=== PATIENT | male | born 1955 | race Caucasian/White ===

== ENCOUNTER 2022-08-14 09:22 | Emergency (ER) | payer OTHER, BC ==
[2022-08-14 09:33] VITALS: PULSE 75; RESP 18; BMI 25.7
[2022-08-14] MEDS ORDERED: KETOROLAC TROMETHAMINE 30 MG/1 ML VIAL IM ONE (10:01)
[2022-08-14] MEDS ORDERED: KETOROLAC TROMETHAMINE 30 MG/1 ML VIAL ONE (10:09)
[2022-08-14 13:15] LABS: BASO % 0.8 % (0-2.0); EOS % 2.1 % (0-4.5); HEMATOCRIT 42.2 % (35.4-49); HEMOGLOBIN 14.4 GM/dL (11.7-16.9); LYMPH % 17.5 % (8-40); MCH 31.6 pg (25.7-33.7); MCHC 34.2 g/dl (32.0-35.9); MEAN CELL VOLUME 92.4 fl (80-96); MEAN PLT VOLUME 7.2 fl (7.5-11.1); MONO % 7.9 % (3.8-10.2); NEUT % 71.7 % (42.8-82.8); PLATELET COUNT 251 10^3/uL (134-434); RBC 4.57 M/mm3 (4.00-5.60); RDW 13.9 % (11.9-15.9); WHITE BLOOD COUNT 8.9 K/mm3 (4.0-10.0)
[2022-08-14 13:46] LABS: POTASSIUM 4.6 mmol/L (3.5-5.1)
[2022-08-14 13:48] LABS: ALBUMIN 3.9 g/dl (3.4-5.0); BLOOD UREA NITROGEN 8.4 mg/dL (7-18); CALCIUM 9.6 mg/dL (8.5-10.1)
[2022-08-14 13:50] LABS: CREATININE 0.6 mg/dL (0.55-1.3)
[2022-08-14 13:52] LABS: BILIRUBIN,TOTAL 0.8 mg/dL (0.2-1); TOT PROT 7.5 g/dl (6.4-8.2)
[2022-08-14 14:06] VITALS: BP 150/65; TEMP 98.2
== END 2022-08-14 14:07 | disposition home or self-care (01) ==
LOC: JER 09:22
PROC: 3E0233Z Introduction of Anti-inflammatory into Muscle, Percutaneous Approach (ICD-10-PCS; principal; 2022-08-14)
DX: M25.552 Pain in left hip (principal)
CPT/HCPCS: 36415; 72192-TC; 73502-TC-LT-FY; 73562-TC-LT-FY; 80053; 85025; 99285-25

== ENCOUNTER 2022-10-08 09:16 | Inpatient (IN) | payer OTHER, BC ==
[2022-10-08 09:22] VITALS: BMI 24.7
[2022-10-08] MEDS ORDERED: ACETAMINOPHEN 1000 MG/100 ML BAG IVPB ONE (12:42)
[2022-10-08] MEDS ORDERED: MAGNESIUM CITRATE 300 ML BOTTLE PO ONE (12:43)
[2022-10-08] MEDS ORDERED: SODIUM PHOSPHATE/NA BIPHOS 133 ML ENEMA PR ONE (12:43)
[2022-10-08] MEDS ORDERED: ACETAMINOPHEN INJECTION 100 ML IVPB ONE (13:32)
[2022-10-08 14:40] LABS: HEMATOCRIT 34.1 % (35.4-49); HEMOGLOBIN 11.3 GM/dL (11.7-16.9); MCH 30.1 pg (25.7-33.7); MCHC 33.1 g/dl (32.0-35.9); MEAN PLT VOLUME 8.4 fl (7.5-11.1); PLATELET COUNT 368 10^3/uL (134-434); RBC 3.75 M/mm3 (4.00-5.60); RDW 13.8 % (11.9-15.9); WHITE BLOOD COUNT 8.9 K/mm3 (4.0-10.0)
[2022-10-08 15:01] LABS: POTASSIUM 5.4 mmol/L (3.5-5.1)
[2022-10-08 15:03] LABS: CALCIUM 9.3 mg/dL (8.5-10.1)
[2022-10-08 15:04] LABS: ALBUMIN 3.2 g/dl (3.4-5.0); BLOOD UREA NITROGEN 16.1 mg/dL (7-18); MAGNESIUM 2.2 mg/dL (1.8-2.4)
[2022-10-08 15:07] LABS: CREATININE 0.9 mg/dL (0.55-1.3)
[2022-10-08 15:08] LABS: LACTIC ACID 2.5 mmol/L (0.4-2.0); TOT PROT 7.6 g/dl (6.4-8.2)
[2022-10-08] MEDS ORDERED: SODIUM CHLORIDE 0.9% 500 ML INFUS.BAG IV ONE (16:09)
[2022-10-08] MEDS ORDERED: KETOROLAC TROMETHAMINE 15 MG/ML VIAL IVPUSH ONE (16:47)
[2022-10-08] MEDS ORDERED: KETOROLAC TROMETHAMINE 15 MG/ML VIAL ONE (16:54)
[2022-10-08] MEDS ORDERED: METOPROLOL TARTRATE 5 MG/5 ML VIAL IVPUSH PRN (18:02)
[2022-10-08] MEDS: SODIUM CHLORIDE 1,000 ML IV SCH (20:09)
[2022-10-09] MEDS: SODIUM CHLORIDE 1,000 ML IV SCH (06:30)
[2022-10-09] MEDS ORDERED: MAGNESIUM HYDROX 2400MG/30ML ORAL SUSPENSION 30 ML CUP PO PRN (09:28)
[2022-10-09 10:45] LABS: BASO % 0.6 % (0-2.0); EOS % 1.9 % (0-4.5); HEMATOCRIT 32.8 % (35.4-49); HEMOGLOBIN 10.8 GM/dL (11.7-16.9); MCH 29.9 pg (25.7-33.7); MCHC 32.9 g/dl (32.0-35.9); MEAN CELL VOLUME 90.7 fl (80-96); MEAN PLT VOLUME 8.1 fl (7.5-11.1); NEUT % 75.5 % (42.8-82.8); PLATELET COUNT 331 10^3/uL (134-434); RBC 3.62 M/mm3 (4.00-5.60); RDW 13.9 % (11.9-15.9); WHITE BLOOD COUNT 7.5 K/mm3 (4.0-10.0)
[2022-10-09 11:05] LABS: POTASSIUM 4.2 mmol/L (3.5-5.1)
[2022-10-09 11:33] LABS: BILIRUBIN,TOTAL 0.9 mg/dL (0.2-1)
[2022-10-09 11:35] LABS: TOT PROT 6.8 g/dl (6.4-8.2)
[2022-10-09 11:37] LABS: CALCIUM 8.5 mg/dL (8.5-10.1)
[2022-10-09 11:38] LABS: CREATININE 0.7 mg/dL (0.55-1.3); MAGNESIUM 2.6 mg/dL (1.8-2.4)
[2022-10-09 11:39] LABS: BLOOD UREA NITROGEN 13.2 mg/dL (7-18)
[2022-10-09 16:05] LABS: RETICULOCYTES 1.06 % (0.5-1.5)
[2022-10-09] MEDS ORDERED: KETOROLAC TROMETHAMINE 30 MG/1 ML VIAL IVPUSH ONE (16:12)
[2022-10-09] MEDS: ACETAMINOPHEN 1000 MG/100 ML BAG IVPB PRN (16:40)
[2022-10-09] MEDS: MONTELUKAST NA 10 MG TABLET PO SCH (21:11)
[2022-10-09] MEDS ORDERED: ATORVASTATIN CA 20 MG TABLET (FP) PO SCH (22:00)
[2022-10-09] MEDS ORDERED: APIXABAN 2.5 MG TABLET PO SCH (22:00)
[2022-10-10] MEDS: ACETAMINOPHEN 1000 MG/100 ML BAG IVPB PRN (03:37)
[2022-10-10] MEDS: TAMSULOSIN HCL 0.4 MG CAP PO SCH (09:08)
[2022-10-10] MEDS: CYCLOBENZAPRINE HCL 10 MG TABLET (FP) PO SCH (09:08)
[2022-10-10] MEDS: amLODIPine BESYLATE 2.5 MG TABLET (FP) PO SCH (09:08)
[2022-10-10] MEDS: ENOXAPARIN NA (PORCINE) 40 MG/0.4 ML DISP.SYRIN SQ SCH (09:09)
[2022-10-10] MEDS: PANTOPRAZOLE 20 MG TABLET PO SCH (09:09)
[2022-10-10] MEDS: SODIUM CHLORIDE 1,000 ML IV SCH (09:10)
[2022-10-10 10:10] LABS: BASO % 0.7 % (0-2.0); EOS % 2.7 % (0-4.5); HEMATOCRIT 32.3 % (35.4-49); HEMOGLOBIN 10.5 GM/dL (11.7-16.9); LYMPH % 13.4 % (8-40); MCH 29.1 pg (25.7-33.7); MCHC 32.5 g/dl (32.0-35.9); MEAN CELL VOLUME 89.6 fl (80-96); MEAN PLT VOLUME 8.1 fl (7.5-11.1); MONO % 7.8 % (3.8-10.2); NEUT % 75.4 % (42.8-82.8); PLATELET COUNT 334 10^3/uL (134-434); RBC 3.61 M/mm3 (4.00-5.60); RDW 13.6 % (11.9-15.9); WHITE BLOOD COUNT 7.9 K/mm3 (4.0-10.0)
[2022-10-10 10:34] LABS: POTASSIUM 4.7 mmol/L (3.5-5.1)
[2022-10-10 10:42] LABS: ALBUMIN 2.8 g/dl (3.4-5.0); CALCIUM 8.8 mg/dL (8.5-10.1); MAGNESIUM 2.1 mg/dL (1.8-2.4)
[2022-10-10 10:43] LABS: BLOOD UREA NITROGEN 8.9 mg/dL (7-18)
[2022-10-10 10:45] LABS: CREATININE 0.6 mg/dL (0.55-1.3)
[2022-10-10 10:47] LABS: TOT PROT 6.8 g/dl (6.4-8.2)
[2022-10-10] MEDS ORDERED: ACETAMINOPHEN 1000 MG/100 ML BAG IVPB ONE (14:07)
[2022-10-10] MEDS: traMADol HCL 50 MG TABLET PO SCH ×2 (14:16→21:43)
[2022-10-10] MEDS: MONTELUKAST NA 10 MG TABLET PO SCH (21:44)
[2022-10-11] MEDS: traMADol HCL 50 MG TABLET PO SCH ×3 (06:06→21:41)
[2022-10-11] MEDS: TAMSULOSIN HCL 0.4 MG CAP PO SCH (09:50)
[2022-10-11] MEDS: amLODIPine BESYLATE 2.5 MG TABLET (FP) PO SCH (09:50)
[2022-10-11] MEDS: PANTOPRAZOLE 20 MG TABLET PO SCH (09:50)
[2022-10-11] MEDS: CYCLOBENZAPRINE HCL 10 MG TABLET (FP) PO SCH (09:50)
[2022-10-11] MEDS: ENOXAPARIN NA (PORCINE) 40 MG/0.4 ML DISP.SYRIN SQ SCH (09:51)
[2022-10-11 10:12] LABS: BASO % 0.8 % (0-2.0); EOS % 2.3 % (0-4.5); HEMATOCRIT 32.3 % (35.4-49); LYMPH % 15.7 % (8-40); MCH 29.8 pg (25.7-33.7); MCHC 34.1 g/dl (32.0-35.9); MEAN CELL VOLUME 87.1 fl (80-96); MEAN PLT VOLUME 7.6 fl (7.5-11.1); MONO % 8.6 % (3.8-10.2); NEUT % 72.6 % (42.8-82.8); PLATELET COUNT 317 10^3/uL (134-434); RBC 3.71 M/mm3 (4.00-5.60); RDW 13.8 % (11.9-15.9); WHITE BLOOD COUNT 7.6 K/mm3 (4.0-10.0)
[2022-10-11 10:36] LABS: POTASSIUM 4.5 mmol/L (3.5-5.1)
[2022-10-11 10:50] LABS: ALBUMIN 2.6 g/dl (3.4-5.0); BLOOD UREA NITROGEN 10.8 mg/dL (7-18); CALCIUM 9.1 mg/dL (8.5-10.1)
[2022-10-11 10:54] LABS: CREATININE 0.6 mg/dL (0.55-1.3); PHOSPHOROUS 4.3 mg/dL (2.5-4.9)
[2022-10-11 10:56] LABS: BILIRUBIN,TOTAL 0.8 mg/dL (0.2-1); TOT PROT 6.6 g/dl (6.4-8.2)
[2022-10-11] MEDS ORDERED: ACETAMINOPHEN 1000 MG/100 ML BAG IVPB ONE (18:02)
[2022-10-11] MEDS ORDERED: KETOROLAC TROMETHAMINE 15 MG/ML VIAL IVPUSH ONE (18:03)
[2022-10-11] MEDS ORDERED: ACETAMINOPHEN 500 MG TABLET (FP) PO SCH (18:30)
[2022-10-11] MEDS: LIDOCAINE 5% TOPICAL PATCH TP SCH (19:39)
[2022-10-11] MEDS: LIDOCAINE PATCH REMOVAL MC SCH (21:40)
[2022-10-11] MEDS: GABAPENTIN 300 MG CAPSULE PO SCH (21:42)
[2022-10-11] MEDS: ATORVASTATIN CA 20 MG TABLET (FP) PO SCH (21:42)
[2022-10-11] MEDS: MONTELUKAST NA 10 MG TABLET PO SCH (21:42)
[2022-10-12] MEDS: ACETAMINOPHEN 325 MG TABLET (FP) PO SCH ×4 (00:37→17:31)
[2022-10-12 05:22] VITALS: RESP 18
[2022-10-12] MEDS: traMADol HCL 50 MG TABLET PO SCH ×3 (06:03→21:04)
[2022-10-12] MEDS: GABAPENTIN 300 MG CAPSULE PO SCH ×3 (06:04→22:08)
[2022-10-12] MEDS: amLODIPine BESYLATE 2.5 MG TABLET (FP) PO SCH (09:25)
[2022-10-12] MEDS: PANTOPRAZOLE 20 MG TABLET PO SCH (09:25)
[2022-10-12] MEDS: CYCLOBENZAPRINE HCL 10 MG TABLET (FP) PO SCH (09:25)
[2022-10-12] MEDS: TAMSULOSIN HCL 0.4 MG CAP PO SCH (09:25)
[2022-10-12] MEDS: LIDOCAINE 5% TOPICAL PATCH TP SCH (09:26)
[2022-10-12] MEDS: ENOXAPARIN NA (PORCINE) 40 MG/0.4 ML DISP.SYRIN SQ SCH (09:27)
[2022-10-12 11:02] LABS: BASO % 0.8 % (0-2.0); EOS % 4.1 % (0-4.5); HEMATOCRIT 31.8 % (35.4-49); HEMOGLOBIN 10.6 GM/dL (11.7-16.9); LYMPH % 18.3 % (8-40); MCH 29.2 pg (25.7-33.7); MCHC 33.3 g/dl (32.0-35.9); MEAN CELL VOLUME 87.7 fl (80-96); MEAN PLT VOLUME 7.7 fl (7.5-11.1); MONO % 9.9 % (3.8-10.2); NEUT % 66.9 % (42.8-82.8); PLATELET COUNT 291 10^3/uL (134-434); RBC 3.63 M/mm3 (4.00-5.60)
[2022-10-12 11:09] LABS: POTASSIUM 4.1 mmol/L (3.5-5.1)
[2022-10-12 11:15] LABS: CALCIUM 8.9 mg/dL (8.5-10.1)
[2022-10-12 11:17] LABS: ALBUMIN 2.5 g/dl (3.4-5.0); BLOOD UREA NITROGEN 15.8 mg/dL (7-18); MAGNESIUM 2.1 mg/dL (1.8-2.4)
[2022-10-12 11:20] LABS: BILIRUBIN,TOTAL 0.6 mg/dL (0.2-1); CREATININE 0.7 mg/dL (0.55-1.3); PHOSPHOROUS 4.6 mg/dL (2.5-4.9); TOT PROT 6.3 g/dl (6.4-8.2)
[2022-10-12] MEDS ORDERED: BISACODYL 10 MG SUPP.RECT PR ONE (15:52)
[2022-10-12] MEDS: POLYETHYLENE GLYCOL (HEALTHYLAX) 3350 17 GM PACKET PO SCH (16:28)
[2022-10-12] MEDS: ATORVASTATIN CA 20 MG TABLET (FP) PO SCH (22:06)
[2022-10-12] MEDS: MONTELUKAST NA 10 MG TABLET PO SCH (22:06)
[2022-10-12] MEDS: LIDOCAINE PATCH REMOVAL MC SCH (22:08)
[2022-10-13] MEDS: ACETAMINOPHEN 325 MG TABLET (FP) PO SCH ×3 (00:50→11:37)
[2022-10-13] MEDS: traMADol HCL 50 MG TABLET PO SCH (07:13)
[2022-10-13] MEDS: TAMSULOSIN HCL 0.4 MG CAP PO SCH (08:10)
[2022-10-13] MEDS: GABAPENTIN 300 MG CAPSULE PO SCH (08:14)
[2022-10-13 08:58] LABS: BASO % 0.7 % (0-2.0); EOS % 3.8 % (0-4.5); HEMATOCRIT 32.5 % (35.4-49); HEMOGLOBIN 11.1 GM/dL (11.7-16.9); LYMPH % 17.9 % (8-40); MCH 29.6 pg (25.7-33.7); MCHC 34.1 g/dl (32.0-35.9); MEAN CELL VOLUME 86.7 fl (80-96); MEAN PLT VOLUME 7.6 fl (7.5-11.1); MONO % 7.9 % (3.8-10.2); NEUT % 69.7 % (42.8-82.8); PLATELET COUNT 317 10^3/uL (134-434); RBC 3.75 M/mm3 (4.00-5.60); RDW 13.8 % (11.9-15.9)
[2022-10-13 09:11] LABS: POTASSIUM 4.2 mmol/L (3.5-5.1)
[2022-10-13 09:17] LABS: ALBUMIN 2.7 g/dl (3.4-5.0); CALCIUM 8.5 mg/dL (8.5-10.1); MAGNESIUM 1.9 mg/dL (1.8-2.4)
[2022-10-13 09:19] LABS: BLOOD UREA NITROGEN 12.1 mg/dL (7-18)
[2022-10-13 09:21] LABS: CREATININE 0.7 mg/dL (0.55-1.3); PHOSPHOROUS 4.4 mg/dL (2.5-4.9)
[2022-10-13 09:23] LABS: BILIRUBIN,TOTAL 0.6 mg/dL (0.2-1); TOT PROT 6.8 g/dl (6.4-8.2)
[2022-10-13] MEDS: amLODIPine BESYLATE 2.5 MG TABLET (FP) PO SCH (09:52)
[2022-10-13] MEDS: PANTOPRAZOLE 20 MG TABLET PO SCH (09:52)
[2022-10-13] MEDS: CYCLOBENZAPRINE HCL 10 MG TABLET (FP) PO SCH (09:52)
[2022-10-13] MEDS: POLYETHYLENE GLYCOL (HEALTHYLAX) 3350 17 GM PACKET PO SCH (09:53)
[2022-10-13] MEDS: LIDOCAINE 5% TOPICAL PATCH TP SCH ×2 (09:54→09:57)
[2022-10-13] MEDS: ENOXAPARIN NA (PORCINE) 40 MG/0.4 ML DISP.SYRIN SQ SCH (09:54)
[2022-10-13 13:58] VITALS: BP 127/61; PULSE 78; TEMP 98.6
== END 2022-10-13 13:30 | disposition home health service (06) | DRG 389 ==
LOC: JER 09:16 → JERBED 16:38 → J6S 23:16
PROVIDERS: ADMIT Internal Medicine; ATTEND Internal Medicine
DX: K56.690 Other partial intestinal obstruction (principal); C34.91 Malignant neoplasm of unspecified part of right bronchus or lung; C79.51 Secondary malignant neoplasm of bone; I10 Essential (primary) hypertension; G89.3 Neoplasm related pain (acute) (chronic); I48.91 Unspecified atrial fibrillation; R94.5 Abnormal results of liver function studies; F17.210 Nicotine dependence, cigarettes, uncomplicated; D64.9 Anemia, unspecified; Z79.01 Long term (current) use of anticoagulants
CPT/HCPCS: 36415; 71101-TC-RT-FY; 73502-TC-LT-FY; 74018-TC-FY; 74177-TC; 80053; 82728; 83540; 83550; 83605; 83690; 83735; 84100; 84484; 85025; 85045; 93005; 93010; 97116-GP; 97162-GP; 99285-25; Q9967